=== PATIENT | male | born 1965 | race Caucasian/White ===

== ENCOUNTER 2020-08-21 06:13 | Observation (INO) ==
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
[2020-08-21 06:42] LABS: Basophils # (auto) 0.02 K/uL (0-0.2); Basophils % (auto) 0.3 %; Eosinophils # (auto) 0.23 K/uL (0-0.5); Hematocrit (blood only) 41.3 % (42-52); Immature Granulocytes # (auto) 0.01 K/uL (0.00-0.02); Immature Granulocytes % (auto) 0.1 %; Lymphocytes # (auto) 1.12 K/uL (1.2-3.4); Lymphocytes % (auto) 14.5 %; Mean Corpuscular Hgb Conc 33.9 g/dL (32-36); Mean Corpuscular Volume 91.4 fL (80-100); Mean Platelet Volume 8.8 fL (7.4-10.4); Monocytes # (auto) 0.46 K/uL (0.11-0.59); Neutrophils # (auto) 5.86 K/uL (1.4-6.5); Neutrophils % (auto) 76.1 %; Platelet Count 240 K/uL (130-400); RDW Standard Deviation 43.6 fL (36.4-46.3); Red Blood Count 4.52 M/uL (4.7-6.1)
[2020-08-21 06:52] LABS: INR 1.1 (0.9-1.1); Partial Thromboplastin Ratio 0.8; Prothrombin Time 11.4 Seconds (9.0-12.0)
[2020-08-21 07:04] LABS: Albumin Level 3.3 gm/dl (3.4-5.0); BUN Creatinine Ratio 14.7 (10-20); Calcium 8.6 mg/dl (8.5-10.1); Creatinine Clr Calc Pharmacy 85.9 ml/min; Est GFR (African American) 98.8; Est GFR (Non-African American) 85.2; Magnesium 2.4 mg/dl (1.8-2.4); Potassium 3.9 mmol/L (3.5-5.1)
[2020-08-21 07:17] LABS: Albumin Globulin Ratio 0.9 (0.9-2); Globulin 3.5 gm/dl (2.5-4.0); Total Protein 6.8 gm/dl (6.4-8.2); Troponin I 0.058 ng/ml (0-0.045)
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
[2020-08-21 07:25] LABS: Thyroid Stimulating Hormone 4.13 uIu/ml (0.300-4.500)
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
[2020-08-21] MEDS ORDERED: SODIUM CHLORIDE 0.9% 1000ML 1,000 ML IV ONE (08:14)
[2020-08-21] MEDS ORDERED: ASPIRIN 81 MG CHEW PO STA (08:14)
[2020-08-21] MEDS ORDERED: ONDANSETRON INJ 2 MG/ML 2 ML VIAL IV PRN (09:45)
[2020-08-21] MEDS ORDERED: ACETAMINOPHEN 325 MG TAB PO PRN (09:45)
[2020-08-21] MEDS ORDERED: PHARMACIST DISCHARGE MED REC CONSULT PRN (09:45)
[2020-08-21] MEDS ORDERED: ENOXAPARIN INJ 40 MG/0.4 ML SYR SQ SCH (09:45)
[2020-08-21] MEDS ORDERED: ASPIRIN 81 MG ECTAB PO SCH (09:45)
--- NOTE | 2020-08-21 10:55 | Electrocardiogram Report ---
Test Reason : Blood Pressure : / mmHG Vent. Rate : 084 BPM Atrial Rate : 084 BPM P-R Int : 190 ms QRS Dur : 096 ms QT Int : 380 ms P-R-T Axes : 051 -39 021 degrees QTc Int : 449 ms Normal sinus rhythm Possible Left atrial enlargement Left axis deviation Abnormal ECG No previous ECGs available Confirmed by Ho Palomares ([id number]) on 08/21/2020 10:54:46 AM Referred By: ED Confirmed By:Ho Palomares
[2020-08-21] MEDS ORDERED: Nursing to Pharmacy Communication SCH (11:15)
[2020-08-21] MEDS ORDERED: GADOBUTROL 65ML VIAL IV ONE (11:22)
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
--- NOTE | 2020-08-21 13:35 | Magnetic Resonance Report ---
MRI OF THE BRAIN COMBO CLINICAL HISTORY: Frontal headache. Encephalopathy. COMPARISON STUDY: CT of the brain dated 08/21/2020. TECHNIQUE: MRI of the brain was performed utilizing various T1 and T2-weighted sequences in the axial , sagittal, and coronal planes. Contrast-enhanced sequences were acquired following the administratio n of 8 cc of Gadavist. FINDINGS: Brain parenchyma: There is no hemorrhage or mass effect. There is no restricted diffusion to suggest acute ischemia. No enhancing mass lesion is identified on the postcontrast images. Small chronic lac unar infarcts are noted in the right cerebellar hemisphere. Toussaint-white matter differentiation is pres erved. No extra-axial fluid collection is seen. The cerebellar tonsils are normal in configuration. Ventricles, sulci, and cisterns: Normal in configuration. Pituitary and sella: Unremarkable. Intracranial vasculature: Normal flow voids are maintained at the skull base. Orbits: The bony orbits are grossly intact. Orbital contents are normal in appearance. Sinuses and mastoids: There is near complete opacification of the right maxillary sinus. Moderate to advanced because of thickening is noted in the ethmoid sinuses. Mild mucosal thickening is seen in th e left maxillary sinus, the frontal sinuses, and ethmoid sinuses. There is a left mastoid effusion. Calvarium: Unremarkable. Cervical cord: Partially visualized cervical spinal cord is normal in morphology and signal intensity . IMPRESSION: 1. No acute intracranial abnormality. 2. Findings of pansinusitis as above. ACT 112: Negative or not required by law. Electronically signed by: Marshal Aguilar M.D. 08/21/2020 1:34 PM
--- NOTE | 2020-08-21 16:32 | Ultrasound Report ---
ULTRASOUND BILATERAL LOWER EXTREMITY VENOUS CLINICAL HISTORY: Transient ischemic attack. Atrial septal defect. COMPARISON STUDY: No priors. TECHNIQUE: Real-time, grayscale, and color Doppler sonography of the deep veins of the right and left lower extremity was performed from the inguinal crease to the calf. Compression and augmentation wer e utilized. FINDINGS: There is no sonographic evidence of deep venous thrombosis identified in the right or left lower extremity. The common femoral, superficial femoral, and popliteal veins are patent and normally compressible bilaterally. The greater saphenous vein and the profunda femoris vein at the junction w ith the common femoral vein are clear in both legs. The visualized calf veins are patent bilaterally. IMPRESSION: There is no sonographic evidence of deep venous thrombosis identified in the right or lef t lower extremity. ACT 112: Negative or not required by law. Electronically signed by: Marshal Aguilar M.D. 08/21/2020 4:31 PM
[2020-08-21] MEDS ORDERED: STROKE PATIENT DISCHARGE STA (16:44)
--- NOTE | 2020-08-21 16:54 | Pharmacy Report ---
Pharmacist Stroke Counseling - Date of Service August 21, 2020 - Scope: Pharmacy has been consulted to provide medication discharge counseling for this patient admitted with possible transient ischemic attack as per the Pharmacist Discharge Counseling for Stroke Patients Protocol. - Medications on Discharge: Home Medications Medication Instructions Recorded Confirmed No Known Home Medications 08/21/20 08/21/20 - Action: The above medications, specifically ones for stroke treatment/prophylaxis, have been reviewed in detail with the patient prior to discharge. This includes indication, common adverse reactions, drug interactions, and medication administration. Medication counseling has been employed using the teach-back method to ensure understanding. - Outcome: The patient demonstrated understanding of the medications. Additional comments: - Stroke discharge counseling provided via telephone secondary to COVID-19 pandemic. - Patient was given time to have any/all questions answered. Thank you for allowing pharmacy to be involved in the care of this patient. Please call [phone] with any additional questions
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
[2020-08-22] MEDS ORDERED: ASPIRIN 81 MG ECTAB PO SCH (09:00)
== END 2020-08-21 18:03 | disposition home or self-care (01) ==
LOC: ED 06:13 → 2W 06:13